=== PATIENT | female | born 1940 | race Caucasian/White ===

== ENCOUNTER 2017-01-04 09:01 | Day surgery (SDC) | payer OTHER ==
[2017-01-03 15:22] VITALS: BMI 23.9
[2017-01-04] MEDS ORDERED: PROPOFOL 20 ML ONE ×2 (10:29)
[2017-01-04 11:49] VITALS: TEMP 98.1
[2017-01-04 13:50] VITALS: BP 166/60; PULSE 54
--- NOTE | 2017-01-05 12:26 | PATH ---
Surgical Pathology Report Patient Name: FAY LERMA [facility]. Rec. #: [id number] /Age/Gender: 1940 (Age: 76) / F Account: [id number] Location: [facility]-ENDOSCOPY Taken: 01/04/2017 Received: 01/04/2017 Reported: 01/05/2017 Physicians: Mana Estrella M.D. Specimen(s) Received A: POLYP TRANSVERSE COLON B: BX CECAL POLYP C: BX RIGHT COLON POLYP Clinical History History of colon polyps, family history of colon cancer Diverticulosis, colon polyps (distal transverse colon, cecal polyp, right colon polyp) Final Diagnosis A. DISTAL TRANSVERSE COLON, POLYP, BIOPSY: TUBULAR ADENOMA. B. CECUM, POLYP, BIOPSY: POLYPOID COLONIC MUCOSA WITH LYMPHOID AGGREGATE. C. COLON, RIGHT, POLYP, BIOPSY: POLYPOID COLONIC MUCOSA WITH LYMPHOID AGGREGATE. Electronically Signed Karen Ruiz M.D. Gross Description A. Received in formalin, labeled "biopsy polyp transverse colon" is a ny, irregular portion of soft tissue measuring 0.4 cm. in greatest dimension. The specimen is submitted in toto in one cassette. B. Received in formalin, labeled "biopsy cecal polyp" are 2 ny, irregular portions of soft tissue measuring 0.2 and 0.3 cm. in greatest dimension. The specimens are submitted in toto in one cassette. C. Received in formalin, labeled "biopsy right colon polyp" are 2 ny, irregular portions of soft tissue measuring 0.1 and 0.4 cm. in greatest dimension. The specimens are submitted in toto in one cassette. 01/04/2017 saudi01/04/2017
== END 2017-01-04 12:40 | disposition home or self-care (01) ==
LOC: JASU-ENDO 09:01
PROVIDERS: ATTEND Internal Medicine Gastroenterology
PROC: 0DBL8ZX Excision of Transverse Colon, Via Natural or Artificial Opening Endoscopic, Diagnostic (ICD-10-PCS; 2017-01-04)
PROC: 0DBH8ZX Excision of Cecum, Via Natural or Artificial Opening Endoscopic, Diagnostic (ICD-10-PCS; principal; 2017-01-04 10:00)
DX: Z12.11 Encounter for screening for malignant neoplasm of colon (principal); Z80.0 Family history of malignant neoplasm of digestive organs; D12.0 Benign neoplasm of cecum; D12.3 Benign neoplasm of transverse colon; K57.30 Diverticulosis of large intestine without perforation or abscess without bleeding; K64.8 Other hemorrhoids
CPT/HCPCS: 88305-TC

== ENCOUNTER 2018-01-19 10:08 | Day surgery (SDC) | payer OTHER ==
[2018-01-18 15:46] VITALS: BMI 23.5
[2018-01-19 12:03] VITALS: TEMP 97.6
[2018-01-19 12:46] VITALS: BP 154/61; PULSE 48
--- NOTE | 2018-01-22 17:09 | PATH ---
Surgical Pathology Report Patient Name: FAY LERMA [facility]. Rec. #: [id number] /Age/Gender: 1940 (Age: 77) / F Account: [id number] Location: U-ENDOSCOPY Taken: 01/19/2018 Received: 01/19/2018 Reported: 01/22/2018 Physicians: Mana Estrella M.D. Specimen(s) Received A: BX DUODENUM SECOND PORTION B: BX ANTRUM Clinical History Flatulence, eructation, gas pain, abdominal pain Postoperative diagnosis: Atrophic gastritis Final Diagnosis A. DUODENUM, SECOND PORTION, BIOPSY: DUODENAL MUCOSA WITH MILD TO MODERATE CHRONIC DUODENITIS AND LOLA'S GLAND HYPERPLASIA. B. STOMACH, ANTRUM, BIOPSY: GASTRIC ANTRAL MUCOSA WITH MILD CHRONIC GASTRITIS. IMMUNOHISTOCHEMICAL STAIN FOR H. PYLORI IS NEGATIVE. Electronically Signed Karen Ruiz M.D. Gross Description A. Received in formalin, labeled "biopsy second portion of duodenum" are 3 ny, irregular portions of soft tissue averaging 0.3 cm. in greatest dimension. The specimens are submitted in toto in one cassette. B. Received in formalin, labeled "biopsy antrum" are 4 ny, irregular portions of soft tissue ranging from 0.2-0.4 cm. in greatest dimension. The specimens are submitted in toto in one cassette. 01/19/201801/19/2018
== END 2018-01-19 12:47 | disposition home or self-care (01) ==
LOC: JASU-ENDO 10:08
PROVIDERS: ATTEND Internal Medicine Gastroenterology
PROC: 0DB68ZX Excision of Stomach, Via Natural or Artificial Opening Endoscopic, Diagnostic (ICD-10-PCS; principal; 2018-01-19 11:15)
DX: K25.9 Gastric ulcer, unspecified as acute or chronic, without hemorrhage or perforation (principal)
CPT/HCPCS: 88305-TC; 88342-TC

== ENCOUNTER 2018-04-01 22:35 | Emergency (ER) | payer OTHER ==
[2018-04-01 22:47] VITALS: BMI 25.0
--- NOTE | 2018-04-01 23:29 | PDOC ---
History of Present Illness - General Chief Complaint: Pain, Acute Stated Complaint: DIZZINESS/NAUSEA Time Seen by Provider: 04/01/18 23:29 - History of Present Illness Initial Comments: 04/01/18 23:42 Ms. Abdul is a 78 yo female w/ pmh HTN, HLD, GERD, who presents for evaluation of several day history of nausea, with gas that progressed to abdominal pain. Patient reports symptoms started on Monday and have been complicated by nausea. Symptoms advanced today with bilateral lower abdominal pain. Patient reports last full bowel movement 3 days ago and small bm 2 days ago. Denies any other symptoms. The patient denies chest pain, shortness of breath, headache and dizziness. Denies fever, chills, vomit, and diarrhea. Denies dysuria, frequency, urgency and hematuria. Past History - Past Medical History Allergies/Adverse Reactions: Allergies Allergy/AdvReac Type Severity Reaction Status Date / Time codeine Allergy Severe Nausea Verified 10/01/12 15:53 Home Medications: Ambulatory Orders Cholecalciferol (Vitamin D3) [Vitamin D3] 400 unit PO DAILY 10/01/12 Simvastatin [Zocor -] 10 mg PO HS 10/01/12 Alprazolam [Xanax Xr] 1 mg PO PRN PRN 01/03/17 Aspirin [Aspirin EC] 81 mg PO DAILY 01/03/17 Metoprolol Tartrate [Lopressor -] 25 mg PO PRN 01/03/17 Omeprazole 20 mg PO DAILY #1 tab 01/19/18 Amlodipine Besylate 2.5 mg PO DAILY 04/01/18 Cholecalciferol (Vitamin D3) [Vitamin D3] 1,000 unit PO DAILY 04/01/18 Ubidecarenone [Coq-10] 30 mg PO DAILY 04/01/18 Anemia: No Asthma: No Cancer: No Cardiac Disorders: Yes (MVP,ARRYTHMIA) CVA: No COPD: No CHF: No Dementia: No Diabetes: No GI Disorders: Yes Disorders: Yes (NEPHROLITHIASIS WITH ESWL) HTN: No Hypercholesterolemia: Yes Liver Disease: No Seizures: No Thyroid Disease: No - Surgical History Abdominal Surgery: Yes Appendectomy: No Cardiac Surgery: No Cholecystectomy: Yes Lung Surgery: No Neurologic Surgery: No Orthopedic Surgery: Yes (RIGHT SHOULDER SX,RIGHT KNEE) - Suicide/Smoking/Psychosocial Hx Smoking History: Never smoked Have you smoked in the past 12 months: No If you are a former smoker, when did you quit?: 1974 Information on smoking cessation initiated: No Hx Alcohol Use: No Drug/Substance Use Hx: No Substance Use Type: None Hx Substance Use Treatment: No Review of Systems - Review of Systems Comments:: 04/02/18 00:00 GENERAL/CONSTITUTIONAL: No fever or chills. No weakness. HEAD, EYES, EARS, NOSE AND THROAT: No change in vision. No ear pain or discharge. No sore throat. CARDIOVASCULAR: No chest pain or shortness of breath RESPIRATORY: No cough, wheezing, or hemoptysis. GASTROINTESTINAL: +Constipation with nausea as described. +HAMMAD lower abdominal pain. No vomiting or diarrhea. GENITOURINARY: No dysuria, frequency, or change in urination. MUSCULOSKELETAL: No joint or muscle swelling or pain. No neck or back pain. SKIN: No rash NEUROLOGIC: No headache, vertigo, loss of consciousness, or change in strength/ sensation. ENDOCRINE: No increased thirst. No abnormal weight change HEMATOLOGIC/LYMPHATIC: No anemia, easy bleeding, or history of blood clots. ALLERGIC/IMMUNOLOGIC: No hives or skin allergy. *Physical Exam - Vital Signs Last Vital Signs Temp Pulse Resp BP Pulse Ox 98.2 F 70 20 102/66 96 04/01/18 22:40 04/01/18 22:40 04/01/18 22:40 04/01/18 22:40 04/01/18 22:40 - Physical Exam Comments: 04/02/18 00:01 GENERAL: Awake, alert, and fully oriented, in no acute distress HEAD: No signs of trauma, normocephalic, atraumatic EYES: PERRLA, EOMI, sclera anicteric, conjunctiva clear ENT: Auricles normal inspection, hearing grossly normal, nares patent, oropharynx clear without exudates. Moist mucosa NECK: Normal ROM, supple, no lymphadenopathy, JVD, or masses LUNGS: No distress, speaks full sentences, clear to auscultation bilaterally HEART: Regular rate and rhythm, normal S1 and S2, no murmurs, rubs or gallops, peripheral pulses normal and equal bilaterally. ABDOMEN: +HAMMAD Lower abdominal TTP, L>R. Soft, normoactive bowel sounds. No guarding, no rebound. No masses EXTREMITIES: Normal inspection, Normal range of motion, no edema. No clubbing or cyanosis. NEUROLOGICAL: Cranial nerves II through XII grossly intact. Normal speech, normal gait, no focal sensorimotor deficits SKIN: Warm, Dry, normal turgor, no rashes or lesions noted. Moderate Sedation - Procedure Monitoring Vital Signs: Procedure Monitoring Vital Signs Temperature 98.2 F 04/01/18 22:40 Pulse Rate 70 04/01/18 22:40 Respiratory Rate 20 04/01/18 22:40 Blood Pressure 102/66 04/01/18 22:40 O2 Sat by Pulse Oximetry (%) 96 04/01/18 22:40 ED Treatment Course - LABORATORY CBC & Chemistry Diagram: 04/01/18 23:56 04/01/18 23:56 Medical Decision Making - Medical Decision Making 04/02/18 02:44 Ms. Burgos is a 78 yo female w/ pmh as described who presents for evaluation of symptoms concerning for diverticulitis vs. SBO vs. viral illness vs. appenditicits. Patient evaluated with labs as below and found to have mildly elevated WBC count. Patient evaluated further with CT abdomen/pelvis and found to have moderate sigmoid diverticulitis w/out complication. Will proscribe patient outpatient Rx for augmentin (patient requested not to have levaquin as she has had tendonitis following use in the past) / flagyl and dc for outpatient follow-up. Discussed with patient who agrees. Discharging to home. Laboratory Results - last 24 hr 04/01/18 04/01/18 04/01/18 23:56 23:56 23:56 WBC 13.3 H RBC 3.80 Hgb 13.2 Hct 36.7 MCV 96.5 H MCH 34.7 H MCHC 36.0 RDW 13.2 Plt Count 169 MPV 8.5 Absolute Neuts (auto) 11.2 H Neutrophils % 83.9 H Lymphocytes % 9.2 Monocytes % 6.2 Eosinophils % 0.3 Basophils % 0.4 Nucleated RBC % 0 PT with INR 12.70 INR 1.08 PTT (Actin FS) 31.5 Sodium 137 Potassium 3.9 Chloride 105 Carbon Dioxide 23 Anion Gap 10 BUN 19 H Creatinine 0.8 Creat Clearance w eGFR > 60 Random Glucose 134 H Calcium 8.6 Total Bilirubin 0.7 AST 25 ALT 17 Alkaline Phosphatase 87 Total Protein 7.4 Albumin 4.2 Urine Color Urine Appearance Urine pH Ur Specific [place] Urine Protein Urine Glucose (UA) Urine Ketones Urine Blood Urine Nitrite Urine Bilirubin Urine Urobilinogen Ur Leukocyte Esterase Urine WBC (Auto) Urine RBC (Auto) Ur Epithelial Cells Hyaline Casts Urine Mucus Blood Type Antibody Screen 04/01/18 04/02/18 23:56 00:53 WBC RBC Hgb Hct MCV MCH MCHC RDW Plt Count MPV Absolute Neuts (auto) Neutrophils % Lymphocytes % Monocytes % Eosinophils % Basophils % Nucleated RBC % PT with INR INR PTT (Actin FS) Sodium Potassium Chloride Carbon Dioxide Anion Gap BUN Creatinine Creat Clearance w eGFR Random Glucose Calcium Total Bilirubin AST ALT Alkaline Phosphatase Total Protein Albumin Urine Color Yellow Urine Appearance Clear Urine pH 6.0 Ur Specific [place] 1.016 Urine Protein 2+ H Urine Glucose (UA) Negative Urine Ketones 1+ H Urine Blood Negative Urine Nitrite Negative Urine Bilirubin Negative Urine Urobilinogen Negative Ur Leukocyte Esterase Negative Urine WBC (Auto) 4 Urine RBC (Auto) 1 Ur Epithelial Cells Rare Hyaline Casts 1 Urine Mucus Rare Blood Type O POSITIVE Antibody Screen Negative *DC/Admit/Observation/Transfer Diagnosis at time of Disposition: Diverticulitis - Discharge Dispostion Disposition: HOME - Referrals Referrals: Hany Ortiz MD [Primary Care Provider] - - Patient Instructions Printed Discharge Instructions: DI for Diverticulitis Additional Instructions: You were evaluated today in the ER for your stomach pain and found to have diverticulitis. We started you on antibiotics for home use and recommend you follow-up with optical glass wet inspector tomorrow for further evaluation as discussed. Return to ER if any difficulty taking medications, fevers, chills, pain, or other concerning symptoms. - Post Discharge Activity
--- NOTE | 2018-04-01 23:41 | PDOC ---
Attending Attestation - HPI HPI: This patient is a 78 year old F, with PMHx of HTN, HLD, gastritis, who presents with nausea & flatulence since Monday. She states she woke up this morning and had b/l lower abdominal pain with increased nausea. She states 3 days ago she had a normal-sized BM but 2 days ago she had a smaller sized BM. Surgical Hx: Cholecystectomy 04/02/18 00:01 <Amisha Villalba - Last Filed: 04/02/18 00:01> - Physicial Exam PE: 04/02/18 01:35 GENERAL: Well-appearing, well-nourished. No apparent distress. HEENT: Normocephalic, atraumatic. PERRL, EOM intact. CARDIOVASCULAR: Normal S1, S2. Regular rate and rhythm. PULMONARY: Clear to auscultation bilaterally. ABDOMEN: RLQ tenderness. Soft, non-distended EXTREMITIES: Normal ROM in all four extremities. No gross deformities. SKIN: Warm, dry. No rash NEUROLOGICAL: No focal neurological deficits. <Alexy Gibson - Last Filed: 04/02/18 01:35> - Resident Resident Name: Mendez Sher - ED Attending Attestation I have performed the following: I have examined & evaluated the patient, The case was reviewed & discussed with the resident, I agree w/resident's findings & plan - Medical Decision Making 04/02/18 02:44 Patient Name: FAY LERMA THIS IS A PRELIMINARY REPORT FROM [facility] [employer] DATE OF SERVICE: 2018-04-02 02:18:54 IMAGES: [id number] EXAM: ABDOMEN \T\ PELVIS CT W/O CONTR HISTORY: Rule out colitis COMPARISON: None. FINDINGS: Lung bases are clear. The visualized cardiac chambers are normal size and configuration. Status post cholecystectomy without biliary duct dilation. Normal unenhanced liver, pancreas, spleen, adrenal glands and kidneys. The stomach and small bowel are normal. There is moderate sigmoid inflammation diverticulosis, consistent diverticulitis. No bowel obstruction, abscess or free air. There is no aortic aneurysm. There is no significant retroperitoneal lymphadenopathy. The pelvic small and large bowel are normal. There is no evidence of appendicitis the appendix is normal structures are notable for small calcified fibroid. Urinary bladder is unremarkable. There is no pelvic free fluid. No discrete pelvic lymphadenopathy is identified. IMPRESSION: Moderate sigmoid diverticulitis without secondary complication 04/02/18 03:14 Pt is refusing levaquin to go home with; we will treat her uncomplicated colitis with augmentin and she will follow with Dr. Estrella <Avril Perdomo - Last Filed: 04/02/18 03:15> Attestations - Attestations 04/02/18 01:36 Documentation prepared by Alexy Gibson, acting as medical laboratory specialist for Avril Perdomo MD <Aleyx Gibson - Last Filed: 04/02/18 01:35>
[2018-04-01] MEDS ORDERED: SODIUM CHLORIDE 0.9% 500 ML INFUS.BAG IV ONE (23:46)
[2018-04-01] MEDS ORDERED: ONDANSETRON 4 MG/2 ML VIAL IVPUSH ONE (23:47)
[2018-04-01] MEDS ORDERED: ACETAMINOPHEN 1000 MG/100 ML VIAL (NON FORMULARY) IVPB ONE (23:47)
[2018-04-01] MEDS ORDERED: ACETAMINOPHEN INJECTION 100 ML IVPB ONE (23:58)
[2018-04-01] MEDS ORDERED: ONDANSETRON 4 MG/2 ML VIAL ONE (23:58)
[2018-04-02 00:05] LABS: BASO % 0.4 % (0-2.0); EOS % 0.3 % (0-4.5); HEMATOCRIT 36.7 % (32.4-45.2); HEMOGLOBIN 13.2 GM/dL (10.7-15.3); LYMPH % 9.2 % (8-40); MCH 34.7 pg (25.7-33.7); MEAN CELL VOLUME 96.5 fl (80-96); MEAN PLT VOLUME 8.5 fl (7.5-11.1); MONO % 6.2 % (3.8-10.2); NEUT % 83.9 % (42.8-82.8); PLATELET COUNT 169 K/MM3 (134-434); RDW 13.2 % (11.6-15.6); WHITE BLOOD COUNT 13.3 K/mm3 (4.0-10.0)
[2018-04-02 00:19] LABS: INR 1.08 (0.83-1.09); PROTHROMBIN TIME (PATIENT) 12.7 SEC (9.7-13.0)
[2018-04-02 00:22] LABS: ACTIVATED PTT 31.5 SECONDS (25.2-36.5)
[2018-04-02 00:46] LABS: ALBUMIN 4.2 g/dl (3.4-5.0); ALK PHOS 87 U/L (45-117); ANION GAP 10 MMOL/L (8-16); BILIRUBIN,TOTAL 0.7 mg/dL (0.2-1); BLOOD UREA NITROGEN 19 mg/dL (7-18); CALCIUM 8.6 mg/dL (8.5-10.1); CHLORIDE 105 mmol/L (98-107); CO2 23 mmol/L (21-32); CREATININE 0.8 mg/dL (0.55-1.3); GLUCOSE,RANDOM 134 mg/dL (74-106); POTASSIUM 3.9 mmol/L (3.5-5.1); SGOT/AST 25 U/L (15-37); SGPT/ALT 17 U/L (13-61); SODIUM 137 mmol/L (136-145); TOT PROT 7.4 g/dl (6.4-8.2)
[2018-04-02 01:06] LABS: URINE APPEARANCE CLEAR; URINE BILIRUBIN NEGATIVE (<2.0 mg/dL); URINE COLOR YELLOW; URINE GLUCOSE (UA) NEGATIVE (NEGATIVE); URINE KETONE 1+ (NEGATIVE); URINE LEUK ESTERASE NEGATIVE (NEGATIVE); URINE NITRITE NEGATIVE (NEGATIVE); URINE PROTEIN 2+ (NEGATIVE); URINE UROBILINOGEN NEGATIVE mg/dL (0.2-1.0)
[2018-04-02 01:14] LABS: EPI CELLS RARE /HPF (FEW); URINE HYALINE CAST 1 /lpf; URINE MUCUS RARE
[2018-04-02 03:21] VITALS: BP 110/67; PULSE 88; TEMP 98.5
--- NOTE | 2018-04-02 10:47 | EKG ---
Test Reason : Blood Pressure : / mmHG Vent. Rate : 050 BPM Atrial Rate : 050 BPM P-R Int : 180 ms QRS Dur : 070 ms QT Int : 450 ms P-R-T Axes : 071 060 056 degrees QTc Int : 410 ms SINUS BRADYCARDIA OTHERWISE NORMAL ECG WHEN COMPARED WITH ECG OF 10-MAY-1997 11:09, NO SIGNIFICANT CHANGE WAS FOUND Confirmed by AKIKO BLACK MD ([id number]) on 04/02/2018 10:46:42 AM Referred By: Confirmed By:AKIKO BLACK MD
== END 2018-04-02 03:21 | disposition home or self-care (01) ==
LOC: JER 22:35
PROC: 3E03329 Introduction of Other Anti-infective into Peripheral Vein, Percutaneous Approach (ICD-10-PCS; principal; 2018-04-01)
PROC: 3E03329 Introduction of Other Anti-infective into Peripheral Vein, Percutaneous Approach (ICD-10-PCS; 2018-04-01)
PROC: 3E033GC Introduction of Other Therapeutic Substance into Peripheral Vein, Percutaneous Approach (ICD-10-PCS; 2018-04-01)
PROC: 3E033NZ Introduction of Analgesics, Hypnotics, Sedatives into Peripheral Vein, Percutaneous Approach (ICD-10-PCS; 2018-04-01)
DX: K57.92 Diverticulitis of intestine, part unspecified, without perforation or abscess without bleeding (principal); I10 Essential (primary) hypertension; E78.00 Pure hypercholesterolemia, unspecified; K21.9 Gastro-esophageal reflux disease without esophagitis; Z87.442 Personal history of urinary calculi
CPT/HCPCS: 36415; 71045-TC-FY; 74176-TC; 80053; 81003; 81015; 85025; 85610; 85730; 86850; 86900; 86901; 87086; 93005; 93010; 96365; 96368; 96375; 99282-25; J0131

== ENCOUNTER 2019-04-27 13:00 | Emergency (ER) | payer OTHER ==
[2019-04-27 13:06] VITALS: BP 112/55; PULSE 59; TEMP 97.7; BMI 23.0
[2019-04-27] MEDS ORDERED: RABIES VACCINE (PCEC)/PF 2.5 UNIT/VIAL IM ONE ×2 (13:34→13:48)
[2019-04-27] MEDS ORDERED: DIPHTH,PERTUSS(ACELL),TET 0.5 ML DISP.SYRIN IM ONE ×2 (13:34→13:48)
[2019-04-27] MEDS ORDERED: ACETAMINOPHEN 500 MG TABLET (FP) PO ONE (13:34)
[2019-04-27] MEDS ORDERED: RABIES IMMUNE GLOBULIN 300 UNITS/1 ML VIAL IM ONE (13:34)
--- NOTE | 2019-04-27 13:40 | PDOC ---
History of Present Illness - General Chief Complaint: Bite Stated Complaint: DOG BITE Time Seen by Provider: 04/27/19 13:11 History Source: Patient, Old Records Exam Limitations: No Limitations - History of Present Illness Initial Comments: 04/27/19 13:40 HISTORY OF PRESENT ILLNESS: 79-year-old woman past medical history of arrhythmia , hypertension currently not on medications who presents emergency department for evaluation of dog bite to her left leg. Patient reports she came out of a grocery store where there is a small brown dog who bit her without being provoked. Patient noted that the teeth went through her pants but when she lifted up the pant leg did not notice any bleeding at that time. The dog's flatbed company driver reported the dog is up-to-date with vaccinations but did not give contact information. Patient went to another store and noted bleeding from her leg at that time and when she came out of the store the dog and the flatbed company driver had gone. Unknown last tetanus. No recent travel or sick contacts. PAST MEDICAL HISTORY: See HPI SURGICAL HISTORY: Denies ALLERGIES: No known drug allergies REVIEW OF SYSTEMS General/Constitutional: Denies fever or chills. Denies weakness, weight change. HEENT: Denies change in vision. Denies ear pain or discharge. Denies sore throat. Cardiovascular: Denies chest pain or shortness of breath. Respiratory: Denies cough, wheezing, or hemoptysis. Gastrointestinal: Denies nausea, vomiting, diarrhea or constipation. Denies rectal bleeding. Genitourinary: Denies dysuria, frequency, or change in urination. Musculoskeletal: Denies joint or muscle swelling or pain. Denies neck or back pain. Skin and breasts: See HPI Neurologic: Denies headache, vertigo, loss of consciousness, or loss of sensation. Psychiatric: Denies depression or anxiety. Endocrine: Denies increased thirst. Denies abnormal weight change. Hematologic/Lymphatic: Denies anemia, easy bleeding, or history of blood clots. Allergic/Immunologic: Denies hives or skin allergy. Denies latex allergy. PHYSICAL EXAM General Appearance: Well-appearing, appropriately dressed. No apparent distress , no intoxication. Respiratory/Chest: Lungs CTAB. No shortness of breath, chest tenderness, respiratory distress, accessory muscle use. No crackles, rales, rhonchi, stridor , wheezing, dullness Cardiovascular: RRR. S1, S2. No JVD, murmur, bradycardia, tachycardia. Vascular Pulses: Dorsalis-Pedis (R): 2+, Dorsalis-Pedis (L): 2+ Musculoskeletal/Extremities: Normal inspection. FROM of all extremities, normal capillary refill. Pelvis Stable. No CVA tenderness. No tenderness to extremities, pedal edema, swelling, erythema or deformity. Punctate dog bite present to the lateral aspect of the left lower leg. Minor swelling present around wound. Bleeding is controlled at this time. No tenderness to palpation of the bones of the lower leg or soft tissue. No subcutaneous emphysema noted. Neurovascularly intact. Integumentary: See musculoskeletal assessment. Past History - Past Medical History Allergies/Adverse Reactions: Allergies Allergy/AdvReac Type Severity Reaction Status Date / Time codeine Allergy Severe Nausea Verified 04/27/19 13:03 Home Medications: Ambulatory Orders Cholecalciferol (Vitamin D3) [Vitamin D3] 400 unit PO DAILY 10/01/12 Simvastatin [Zocor -] 10 mg PO HS 10/01/12 Alprazolam [Xanax Xr] 1 mg PO PRN PRN 01/03/17 Aspirin [Aspirin EC] 81 mg PO DAILY 01/03/17 Metoprolol Tartrate [Lopressor -] 25 mg PO PRN 01/03/17 Omeprazole 20 mg PO DAILY #1 tab. 01/19/18 Amlodipine Besylate 2.5 mg PO DAILY 04/01/18 Cholecalciferol (Vitamin D3) [Vitamin D3] 1,000 unit PO DAILY 04/01/18 Ubidecarenone [Coq-10] 30 mg PO DAILY 04/01/18 Amoxicillin/Potassium Clav [Augmentin 875-125 Tablet] 1 each PO BID #14 tablet 04/02/18 Amox-Tr/K Cl [Augmentin - 875Mg Tablet] 1 tab PO BID #14 tablet 04/27/19 Anemia: No Asthma: No Cancer: No Cardiac Disorders: Yes (MVP,ARRYTHMIA) CVA: No COPD: No CHF: No Dementia: No Diabetes: No GI Disorders: Yes Disorders: Yes (NEPHROLITHIASIS WITH ESWL) HTN: No Hypercholesterolemia: Yes Liver Disease: No Seizures: No Thyroid Disease: No - Surgical History Abdominal Surgery: Yes Appendectomy: No Cardiac Surgery: No Cholecystectomy: Yes Lung Surgery: No Neurologic Surgery: No Orthopedic Surgery: Yes (RIGHT SHOULDER SX,RIGHT KNEE) - Psycho Social/Smoking Cessation Hx Smoking History: Former smoker Have you smoked in the past 12 months: No If you are a former smoker, when did you quit?: 1974 Information on smoking cessation initiated: No Hx Alcohol Use: No Drug/Substance Use Hx: No Substance Use Type: None Hx Substance Use Treatment: No *Physical Exam - Vital Signs Last Vital Signs Temp Pulse Resp BP Pulse Ox 97.7 F 59 L 18 112/55 L 96 04/27/19 13:04 04/27/19 13:04 04/27/19 13:04 04/27/19 13:04 04/27/19 13:04 Medical Decision Making - Medical Decision Making 04/27/19 13:44 A/P: 79-year-old woman with dog bite to left lower leg As this was an unprovoked attack by a dog that cannot be verified for vaccine status or monitored I will treat the patient for rabies exposure. Rabies immunoglobulin 20 units/kg Rabies vaccine dose #1 now Boostrix IM Tylenol 1 g orally now We will discharge home with prescription for Augmentin. Discharge - Discharge Information Problems reviewed: Yes Clinical Impression/Diagnosis: Dog bite of calf Qualifiers: Encounter type: initial encounter Laterality: left Qualified Code(s): S81.852A - Open bite, left lower leg, initial encounter Condition: Fair - Admission No - Additional Discharge Information Prescriptions: Amox-Tr/K Cl [Augmentin - 875Mg Tablet] 1 tab PO BID #14 tablet - Follow up/Referral Referrals: Hany Ortiz MD [Primary Care Provider] - - Patient Discharge Instructions Additional Instructions: You were bitten by a dog today. Because you're unable to contact the dog's flatbed company driver rabies treatment is indicated at this time. Take Augmentin 875 mg twice a day for the next 10 days. Apply bacitracin to wounds twice a day after washing with antibacterial soap. Your tetanus has been updated today. Return on Sunday 04/30, Monday, Wednesday 05/10 for repeat rabies vaccination. Return to the emergency department for any discharge or drainage from the wounds , red streaking up your leg from the wounds or for any other concerns. Thank you very much for choosing us to provide your emergent health care needs. - Post Discharge Activity Work/Back to School Note: Rabies Vaccination F/U [place].
[2019-04-27] MEDS ORDERED: ACETAMINOPHEN 500 MG TABLET (FP) ONE (13:47)
[2019-04-27] MEDS ORDERED: BACITRACIN 15 GM TUBE TOPICAL OINTMENT TP ONE (14:20)
[2019-04-27] MEDS ORDERED: BACITRACIN 15 GM TUBE TOPICAL OINTMENT ONE (14:24)
== END 2019-04-27 14:33 | disposition home or self-care (01) ==
LOC: JERFT 13:00
PROC: 3E0234Z Introduction of Serum, Toxoid and Vaccine into Muscle, Percutaneous Approach (ICD-10-PCS; principal; 2019-04-27)
PROC: 3E0234Z Introduction of Serum, Toxoid and Vaccine into Muscle, Percutaneous Approach (ICD-10-PCS; 2019-04-27)
PROC: 3E0234Z Introduction of Serum, Toxoid and Vaccine into Muscle, Percutaneous Approach (ICD-10-PCS; 2019-04-27)
DX: S81.852A Open bite, left lower leg, initial encounter (principal); W54.0XXA Bitten by dog, initial encounter; Y93.89 Activity, other specified; Y92.512 Supermarket, store or market as the place of occurrence of the external cause; Y99.8 Other external cause status; Z88.5 Allergy status to narcotic agent; I10 Essential (primary) hypertension; I49.9 Cardiac arrhythmia, unspecified; I34.1 Nonrheumatic mitral (valve) prolapse; E78.00 Pure hypercholesterolemia, unspecified; Z87.442 Personal history of urinary calculi
CPT/HCPCS: 90375; 90471; 90675; 90715; 96372; 99283-25

== ENCOUNTER 2019-04-30 09:31 | Emergency (ER) | payer OTHER ==
[2019-04-30 09:37] VITALS: BP 135/65; PULSE 60; TEMP 97.7; BMI 22.7
--- NOTE | 2019-04-30 09:58 | PDOC ---
History of Present Illness - General Chief Complaint: Revisit,Rabies Injection Stated Complaint: Rabbies vaccine Time Seen by Provider: 04/30/19 09:48 History Source: Patient Exam Limitations: No Limitations - History of Present Illness Initial Comments: 04/30/19 09:48 Here for rabies vaccine, was bitten by stray dog 3 days ago to her left calf. Came here for evaluation and was given initial immunoglobulin and first rabies vaccine. Patient states has been using soap and water and bacitracin ointment, has some mild tenderness same at site but no evidence of infection. No interaction/side effects from injections and vaccination. 04/30/19 10:30 Is this a multiple visit Asthma Patient?: No Severity: mild Past History - Travel Traveled outside of the country in the last 30 days: No Close contact w/someone who was outside of country & ill: No - Past Medical History Allergies/Adverse Reactions: Allergies Allergy/AdvReac Type Severity Reaction Status Date / Time codeine Allergy Severe Nausea Verified 04/30/19 09:37 Home Medications: Ambulatory Orders Simvastatin [Zocor -] 10 mg PO HS 10/01/12 Alprazolam [Xanax Xr] 1 mg PO PRN PRN 01/03/17 Aspirin [Aspirin EC] 81 mg PO DAILY 01/03/17 Metoprolol Tartrate [Lopressor -] 25 mg PO PRN 01/03/17 Omeprazole 20 mg PO DAILY #1 tab. 01/19/18 Cholecalciferol (Vitamin D3) [Vitamin D3] 1,000 unit PO DAILY 04/01/18 Ubidecarenone [Coq-10] 30 mg PO DAILY 04/01/18 Amoxicillin/Potassium Clav [Augmentin 875-125 Tablet] 1 each PO BID #14 tablet 04/02/18 Amox-Tr/K Cl [Augmentin - 875Mg Tablet] 1 tab PO BID #14 tablet 04/27/19 Anemia: No Asthma: No Cancer: No Cardiac Disorders: Yes (MVP,ARRYTHMIA) CVA: No COPD: No CHF: No Dementia: No Diabetes: No GI Disorders: Yes Disorders: Yes (NEPHROLITHIASIS WITH ESWL) HTN: No Hypercholesterolemia: Yes Liver Disease: No Seizures: No Thyroid Disease: No - Surgical History Abdominal Surgery: Yes Appendectomy: No Cardiac Surgery: No Cholecystectomy: Yes Lung Surgery: No Neurologic Surgery: No Orthopedic Surgery: Yes (RIGHT SHOULDER SX,RIGHT KNEE) - Psycho Social/Smoking Cessation Hx Smoking History: Never smoked Have you smoked in the past 12 months: No If you are a former smoker, when did you quit?: 1974 Information on smoking cessation initiated: No Hx Alcohol Use: No Drug/Substance Use Hx: No Substance Use Type: None Hx Substance Use Treatment: No Review of Systems - Review of Systems Able to Perform ROS?: Yes Is the patient limited Luxembourgish proficient: Yes Constitutional: Yes: See HPI. No: Symptoms Reported, Chills, Fever, Loss of Appetite, Malaise Integumentary: Yes: See HPI, Bruising. No: Symptoms Reported All Other Systems: Reviewed and Negative *Physical Exam - Vital Signs Last Vital Signs Temp Pulse Resp BP Pulse Ox 97.7 F 60 17 135/65 99 04/30/19 09:35 04/30/19 09:35 04/30/19 09:35 04/30/19 09:35 04/30/19 09:35 - Physical Exam General Appearance: Yes: Nourished, Appropriately Dressed. No: Apparent Distress HEENT: positive: PATRICK, Normal ENT Inspection, TMs Normal, Pharynx Normal Neck: positive: Supple. negative: Tender Respiratory/Chest: positive: Lungs Clear Musculoskeletal: positive: Normal Inspection Extremity: positive: Normal Capillary Refill, Normal Inspection, Other (Scabbed over lesions to left lower lateral calf. Mildly tender but no ecchymosis, erythema, swelling or significant tenderness. No evidence of cellulitis.) Integumentary: positive: Normal Color, Bruising Neurologic: positive: tumbling machine operator II-XII NML intact, Fully Oriented, Alert, Normal Mood/ Affect Discharge - Discharge Information Problems reviewed: No Clinical Impression/Diagnosis: Encounter for repeat administration of rabies vaccination Condition: Stable Disposition: HOME - Admission No - Follow up/Referral - Patient Discharge Instructions Patient Printed Discharge Instructions: DI for Rabies Vaccine Additional Instructions: Return 05/02/19 for 3rd Vaccine. - Post Discharge Activity
[2019-04-30] MEDS ORDERED: RABIES VACCINE (PCEC)/PF 2.5 UNIT/VIAL IM ONE ×2 (10:02→10:08)
== END 2019-04-30 10:40 | disposition home or self-care (01) ==
LOC: JERFT 09:31
PROC: 3E0234Z Introduction of Serum, Toxoid and Vaccine into Muscle, Percutaneous Approach (ICD-10-PCS; principal; 2019-04-30)
DX: Z20.3 Contact with and (suspected) exposure to rabies (principal); W54.0XXD Bitten by dog, subsequent encounter
CPT/HCPCS: 90471; 90675; 99281-25

== ENCOUNTER 2019-05-04 09:33 | Emergency (ER) | payer OTHER ==
[2019-05-04 10:00] VITALS: BP 154/69; PULSE 55; TEMP 97.3; BMI 22.5
[2019-05-04] MEDS ORDERED: RABIES VACCINE (PCEC)/PF 2.5 UNIT/VIAL IM ONE ×2 (10:08→10:19)
--- NOTE | 2019-05-04 10:25 | PDOC ---
History of Present Illness - General Chief Complaint: Revisit,Rabies Injection Stated Complaint: REVISIT Time Seen by Provider: 05/04/19 10:08 History Source: Patient Exam Limitations: No Limitations - History of Present Illness Initial Comments: 05/04/19 15:37 79 year old patient here for rabies vaccine. Reports no reaction from previous vaccines. Is this a multiple visit Asthma Patient?: No Asa Contraindications(Core Measure): No: Allergy Beta [place] Contraindications(Core Measure): Yes: Not Prescribed Past History - Travel Traveled outside of the country in the last 30 days: No - Past Medical History Allergies/Adverse Reactions: Allergies Allergy/AdvReac Type Severity Reaction Status Date / Time codeine Allergy Severe Nausea Verified 05/04/19 09:56 Home Medications: Ambulatory Orders Simvastatin [Zocor -] 10 mg PO HS 10/01/12 Alprazolam [Xanax Xr] 1 mg PO PRN PRN 01/03/17 Aspirin [Aspirin EC] 81 mg PO DAILY 01/03/17 Metoprolol Tartrate [Lopressor -] 25 mg PO PRN 01/03/17 Omeprazole 20 mg PO DAILY #1 tab. 01/19/18 Cholecalciferol (Vitamin D3) [Vitamin D3] 1,000 unit PO DAILY 04/01/18 Ubidecarenone [Coq-10] 30 mg PO DAILY 04/01/18 Amoxicillin/Potassium Clav [Augmentin 875-125 Tablet] 1 each PO BID #14 tablet 04/02/18 Amox-Tr/K Cl [Augmentin - 875Mg Tablet] 1 tab PO BID #14 tablet 04/27/19 Anemia: No Asthma: No Cancer: No Cardiac Disorders: Yes (MVP,ARRYTHMIA) CVA: No COPD: No CHF: No Dementia: No Diabetes: No GI Disorders: Yes Disorders: Yes (NEPHROLITHIASIS WITH ESWL) HTN: No Hypercholesterolemia: Yes Liver Disease: No Seizures: No Thyroid Disease: No - Surgical History Abdominal Surgery: Yes Appendectomy: No Cardiac Surgery: No Cholecystectomy: Yes Lung Surgery: No Neurologic Surgery: No Orthopedic Surgery: Yes (RIGHT SHOULDER SX,RIGHT KNEE) - Psycho Social/Smoking Cessation Hx Smoking History: Never smoked Have you smoked in the past 12 months: No If you are a former smoker, when did you quit?: 1974 Hx Alcohol Use: No Drug/Substance Use Hx: No Substance Use Type: None Hx Substance Use Treatment: No Review of Systems - Review of Systems Able to Perform ROS?: Yes Is the patient limited Khmer proficient: No Constitutional: No: Chills, Diaphoresis HEENTM: No: Blurred Vision, Ear Pain, Throat Pain, Throat Swelling, Difficulty Swallowing Respiratory: No: Orthopnea, SOB at Rest, Wheezing Cardiac (ROS): No: Chest Pain, Lightheadedness, Palpitations, Syncope Musculoskeletal: No: Joint Pain, Muscle Pain, Muscle Weakness *Physical Exam - Vital Signs Last Vital Signs Temp Pulse Resp BP Pulse Ox 97.3 F L 55 L 20 154/69 98 05/04/19 09:56 05/04/19 09:56 05/04/19 09:56 05/04/19 09:56 05/04/19 09:56 - Physical Exam General Appearance: Yes: Nourished, Appropriately Dressed HEENT: positive: TMs Normal, Pharynx Normal Neck: positive: Supple. negative: Lymphadenopathy (R), Lymphadenopathy (L) Respiratory/Chest: positive: Lungs Clear Cardiovascular: positive: Regular Rhythm, Regular Rate ED Treatment Course - Medications Given in the ED: ED Medications Discontinued Medications Generic Name Dose Route Start Last Admin Trade Name Freq PRN Reason Stop Dose Admin Rabies Vaccine 2.5 unit 05/04/19 10:08 05/04/19 10:19 [place] Rabies Vaccine IM 05/04/19 10:09 2.5 unit .ONCE ONE Administration Medical Decision Making - Medical Decision Making 05/04/19 15:41 79 year old female presents for rabies vaccine Discharge - Discharge Information Problems reviewed: Yes Clinical Impression/Diagnosis: Encounter for repeat administration of rabies vaccination Condition: Good Disposition: HOME - Admission No - Follow up/Referral Referrals: Hany Ortiz MD [Primary Care Provider] - - Patient Discharge Instructions Patient Printed Discharge Instructions: DI for Rabies Vaccine Additional Instructions: Return to emergency room for any reaction to vaccine. Return to emergency department on 05/11/2019 for final vaccine. - Post Discharge Activity Work/Back to School Note: Back to Work
== END 2019-05-04 10:35 | disposition home or self-care (01) ==
LOC: JERFT 09:33
PROC: 3E0234Z Introduction of Serum, Toxoid and Vaccine into Muscle, Percutaneous Approach (ICD-10-PCS; principal; 2019-05-04)
DX: Z20.3 Contact with and (suspected) exposure to rabies (principal); W54.0XXD Bitten by dog, subsequent encounter
CPT/HCPCS: 90471; 90675; 99282-25

== ENCOUNTER 2019-05-11 08:13 | Emergency (ER) | payer OTHER ==
[2019-05-11 08:21] VITALS: BP 153/53; PULSE 51; TEMP 97.7; BMI 22.5
[2019-05-11] MEDS ORDERED: RABIES VACCINE (PCEC)/PF 2.5 UNIT/VIAL IM ONE ×2 (08:26→08:35)
--- NOTE | 2019-05-11 08:29 | PDOC ---
History of Present Illness - General Chief Complaint: Revisit,Rabies Injection Stated Complaint: RABIES SHOT Time Seen by Provider: 05/11/19 08:23 History Source: Patient Exam Limitations: Clinical Condition - History of Present Illness Initial Comments: 05/11/19 08:34 Patient with no significant history present for last vaccine of the rabies vaccination status will be impaired by a stray dog to left leg over 2 weeks ago. Patient already received 3 doses of rabies vaccine and here for the last vaccine. Denies any reaction to previous vaccine. Patient reported bite site t o left leg has healed with no redness or discharge to site. Denies any evidence of infection to wound. Denies any other symptoms Is this a multiple visit Asthma Patient?: No Timing/Duration: other (2 weeks) Past History - Past Medical History Allergies/Adverse Reactions: Allergies Allergy/AdvReac Type Severity Reaction Status Date / Time codeine Allergy Severe Nausea Verified 05/11/19 08:17 Home Medications: Ambulatory Orders Simvastatin [Zocor -] 10 mg PO HS 10/01/12 Alprazolam [Xanax Xr] 1 mg PO PRN PRN 01/03/17 Aspirin [Aspirin EC] 81 mg PO DAILY 01/03/17 Metoprolol Tartrate [Lopressor -] 25 mg PO PRN 01/03/17 Omeprazole 20 mg PO DAILY #1 tab. 01/19/18 Cholecalciferol (Vitamin D3) [Vitamin D3] 1,000 unit PO DAILY 04/01/18 Ubidecarenone [Coq-10] 30 mg PO DAILY 04/01/18 Amoxicillin/Potassium Clav [Augmentin 875-125 Tablet] 1 each PO BID #14 tablet 04/02/18 Amox-Tr/K Cl [Augmentin - 875Mg Tablet] 1 tab PO BID #14 tablet 04/27/19 Anemia: No Asthma: No Cancer: No Cardiac Disorders: Yes (MVP,ARRYTHMIA) CVA: No COPD: No CHF: No Dementia: No Diabetes: No GI Disorders: Yes Disorders: Yes (NEPHROLITHIASIS WITH ESWL) HTN: No Hypercholesterolemia: Yes Liver Disease: No Seizures: No Thyroid Disease: No - Surgical History Abdominal Surgery: Yes Appendectomy: No Cardiac Surgery: No Cholecystectomy: Yes Lung Surgery: No Neurologic Surgery: No Orthopedic Surgery: Yes (RIGHT SHOULDER SX,RIGHT KNEE) - Psycho Social/Smoking Cessation Hx Smoking History: Never smoked Have you smoked in the past 12 months: No If you are a former smoker, when did you quit?: 1974 Hx Alcohol Use: No Drug/Substance Use Hx: No Substance Use Type: None Hx Substance Use Treatment: No Review of Systems - Review of Systems Able to Perform ROS?: Yes Is the patient limited Mohawk proficient: No Constitutional: No: Chills, Fever, Malaise HEENTM: No: Symptoms Reported, See HPI, Eye Pain, Blurred Vision, Tearing, Recent change in vision, Double Vision, Cataracts, Ear Pain, Ocular Prothesis, Ear Discharge, Nose Pain, Nose Congestion, Tinnitus, Nose Bleeding, Hearing Loss, Throat Pain, Throat Swelling, Mouth Pain, Dental Problems, Difficulty Swallowing, Mouth Swelling, Other Respiratory: No: Symptoms reported, See HPI, Cough, Orthopnea, Shortness of Breath, SOB with Exertion, SOB at Rest, Stridor, Wheezing, Productive cough, Hemoptysis, Other Cardiac (ROS): No: Symptoms Reported ABD/GI: No: Symptoms Reported, Nausea, Vomiting Musculoskeletal: No: Symptoms Reported, See HPI, Muscle Pain (left leg over bite site) Integumentary: Yes: Symptoms Reported, See HPI, Bruising (over bite site). No: Change in Color, Erythema, Lumps Neurological: No: Symptoms reported, Numbness, Paresthesia, Tingling, Weakness All Other Systems: Reviewed and Negative *Physical Exam - Vital Signs Last Vital Signs Temp Pulse Resp BP Pulse Ox 97.7 F 51 L 18 153/53 L 97 05/11/19 08:17 05/11/19 08:17 05/11/19 08:17 05/11/19 08:17 05/11/19 08:17 - Physical Exam General Appearance: Yes: Nourished, Appropriately Dressed. No: Apparent Distress HEENT: positive: Normal ENT Inspection Neck: positive: Supple Respiratory/Chest: positive: Decreased Breath Sounds. negative: Respiratory Distress, Accessory Muscle Use Musculoskeletal: positive: Normal Inspection Extremity: positive: Normal Capillary Refill, Normal Inspection, Normal Range of Motion. negative: Tender (to left leg), Cyanosis, Pedal Edema, Erythema Integumentary: positive: Normal Color, Warm. negative: Erythema (to left lateral lower leg over bite sit) Neurologic: positive: Fully Oriented, Alert, Normal Mood/Affect, Normal Response, Motor Strength /5 Medical Decision Making - Medical Decision Making 05/11/19 08:31 Patient with no significant history present for last vaccine of the rabies vaccination status will be impaired by a stray dog to left leg over 2 weeks ago. Patient already received 3 doses of rabies vaccine and here for the last vaccine. Denies any reaction to previous vaccine. Patient reported bite site to left leg has healed with no redness or discharge to site. Denies any evidence of infection to wound. Denies any other symptoms Exam significant for well-healed wound smaller abrasions to lateral aspect of left lower leg. No open wounds. No redness to wound site. No evidence of wound infection. Rabies vaccine given in the left deltoid without complication. Patient tolerated injection well and left room without complication. Patient stable for discharge Discharge - Discharge Information Problems reviewed: Yes Clinical Impression/Diagnosis: Encounter for repeat administration of rabies vaccination Dog bite of calf Qualifiers: Encounter type: subsequent encounter Laterality: left Qualified Code(s): S81.852D - Open bite, left lower leg, subsequent encounter Condition: Improved Disposition: HOME - Admission No - Follow up/Referral Referrals: Hany Ortiz MD [Primary Care Provider] - - Patient Discharge Instructions Patient Printed Discharge Instructions: DI for Rabies Vaccine Additional Instructions: You have received the last vaccine of your rabies vaccine today. Observe site of injection for any redness or evidence of infection and follow-up if changes to the skin of injection site. Come back to emergency room if shortness of breath, hives, choking sensation or evidence of allergic to vaccine - Post Discharge Activity
== END 2019-05-11 08:49 | disposition home or self-care (01) ==
LOC: JER 08:13
PROC: 3E0234Z Introduction of Serum, Toxoid and Vaccine into Muscle, Percutaneous Approach (ICD-10-PCS; principal; 2019-05-11)
DX: Z20.3 Contact with and (suspected) exposure to rabies (principal); W54.0XXD Bitten by dog, subsequent encounter
CPT/HCPCS: 90675; 99284-25

== ENCOUNTER 2021-04-11 10:37 | Emergency (ER) | payer OTHER ==
[2021-04-11 10:44] VITALS: BMI 20.7
[2021-04-11] MEDS ORDERED: LACTATED RINGERS SOLUTION 1,000 ML/1,000 ML INFUS.BAG IV SCH (12:15)
[2021-04-11 12:40] LABS: BASO % 0.7 % (0-2.0); HEMATOCRIT 34.7 % (32.4-45.2); HEMOGLOBIN 11.7 GM/dL (10.7-15.3); LYMPH % 21.3 % (8-40); MCH 32.2 pg (25.7-33.7); MCHC 33.7 g/dl (32.0-36.0); MEAN CELL VOLUME 95.5 fl (80-96); MEAN PLT VOLUME 8.2 fl (7.5-11.1); MONO % 8.2 % (3.8-10.2); NEUT % 66.8 % (42.8-82.8); PLATELET COUNT 162 10^3/uL (134-434); RBC 3.64 M/mm3 (3.60-5.2); RDW 13.4 % (11.6-15.6); WHITE BLOOD COUNT 4.5 K/mm3 (4.0-10.0)
[2021-04-11] MEDS ORDERED: ONDANSETRON 4 MG/2 ML VIAL IVPUSH ONE (12:46)
[2021-04-11 12:56] LABS: CALCIUM 9.1 mg/dL (8.5-10.1)
[2021-04-11 12:57] LABS: ALBUMIN 3.9 g/dl (3.4-5.0); BLOOD UREA NITROGEN 16.2 mg/dL (7-18); MAGNESIUM 2.6 mg/dL (1.8-2.4)
[2021-04-11 13:00] LABS: CREATININE 0.8 mg/dL (0.55-1.3); PHOSPHOROUS 3.6 mg/dL (2.5-4.9)
[2021-04-11 13:03] LABS: BILIRUBIN,TOTAL 0.6 mg/dL (0.2-1); TOT PROT 6.8 g/dl (6.4-8.2)
[2021-04-11 17:02] VITALS: BP 138/62; PULSE 56; TEMP 97.9
== END 2021-04-11 15:51 | disposition home or self-care (01) ==
LOC: JER 10:37
PROC: 3E033GC Introduction of Other Therapeutic Substance into Peripheral Vein, Percutaneous Approach (ICD-10-PCS; principal; 2021-04-11)
DX: K52.9 Noninfective gastroenteritis and colitis, unspecified (principal)
CPT/HCPCS: 36415; 74177-TC; 80053; 83690; 83735; 84100; 85025; 93005; 93010; 96361; 96374; 99285-25; C9803; U0003; U0005

== ENCOUNTER 2021-09-20 04:34 | Day surgery (SDC) | payer OTHER ==
[2021-09-15 15:17] VITALS: BMI 20.2
[2021-09-20 10:26] VITALS: PULSE 60; TEMP 97.9
[2021-09-20 11:05] VITALS: BP 163/68
== END 2021-09-20 11:15 | disposition home or self-care (01) ==
LOC: JASU-ENDO 04:34
PROVIDERS: ATTEND Internal Medicine Gastroenterology
PROC: 0DJD8ZZ Inspection of Lower Intestinal Tract, Via Natural or Artificial Opening Endoscopic (ICD-10-PCS; principal; 2021-09-20 10:00)
DX: Z12.11 Encounter for screening for malignant neoplasm of colon (principal); K57.30 Diverticulosis of large intestine without perforation or abscess without bleeding; K64.8 Other hemorrhoids; Z86.010 Personal history of colon polyps; Z80.0 Family history of malignant neoplasm of digestive organs

== ENCOUNTER 2021-11-16 08:50 | Emergency (ER) | payer OTHER ==
[2021-11-16 09:02] VITALS: BP 118/74; PULSE 66; RESP 17; TEMP 98.2; BMI 22.0
== END 2021-11-16 10:03 | disposition home or self-care (01) ==
LOC: JERFT 08:50
DX: S80.02XA Contusion of left knee, initial encounter (principal); Y99.9 Unspecified external cause status
CPT/HCPCS: 99283-25

== ENCOUNTER 2022-05-18 16:35 | Emergency (ER) | payer OTHER ==
[2022-05-18 16:54] VITALS: BP 154/96; PULSE 68; RESP 18; TEMP 98.1; BMI 22.7
[2022-05-18] MEDS ORDERED: ACETAMINOPHEN 1000 MG/100 ML BAG IVPB ONE (17:15)
[2022-05-18] MEDS ORDERED: MAG HYDROX/AL HYDROX/SIMETH 30 ML UNIT-DOSE CUP PO ONE (17:19)
[2022-05-18] MEDS ORDERED: FAMOTIDINE 20 MG/50 ML IVPB 20 MG/50 ML MG IVPB ONE ×2 (17:19→18:04)
[2022-05-18] MEDS ORDERED: ACETAMINOPHEN INJECTION 100 ML IVPB ONE (18:04)
[2022-05-18] MEDS ORDERED: MAG HYDROX/AL HYDROX/SIMETH 30 ML UNIT-DOSE CUP ONE (18:04)
[2022-05-18 18:07] LABS: HEMOGLOBIN 11.7 GM/dL (10.7-15.3); LYMPH % 33.5 % (8-40); MCH 31.2 pg (25.7-33.7); MCHC 33.6 g/dl (32.0-36.0); MEAN CELL VOLUME 93.1 fl (80-96); MONO % 9.6 % (3.8-10.2); NEUT % 54.9 % (42.8-82.8); PLATELET COUNT 170 10^3/uL (134-434); RBC 3.76 M/mm3 (3.60-5.2); RDW 13.3 % (11.6-15.6); WHITE BLOOD COUNT 4.9 K/mm3 (4.0-10.0)
[2022-05-18 18:17] LABS: EPI CELLS 4 /uL (0-25.1); HYALINE CASTS 0 /uL (0-3.1); URINE APPEARANCE CLEAR; URINE BACTERIA 44 /uL (0-1359); URINE BILIRUBIN NEGATIVE (NEGATIVE); URINE COLOR YELLOW; URINE GLUCOSE (UA) NEGATIVE (NEGATIVE); URINE KETONE NEGATIVE (NEGATIVE); URINE LEUK ESTERASE 1+ (NEGATIVE); URINE NITRITE NEGATIVE (NEGATIVE); URINE PROTEIN NEGATIVE (NEGATIVE); URINE RBC 6 /uL (0-23.9); URINE UROBILINOGEN 0.2 mg/dL (0.2-1.0); URINE WBC 16 /uL (0-25.8)
[2022-05-18 18:52] LABS: CALCIUM 9.2 mg/dL (8.5-10.1)
[2022-05-18 18:53] LABS: ALBUMIN 3.8 g/dl (3.4-5.0); BLOOD UREA NITROGEN 14.9 mg/dL (7-18)
[2022-05-18 18:56] LABS: CREATININE 0.8 mg/dL (0.55-1.3)
[2022-05-18 18:57] LABS: BILIRUBIN,TOTAL 0.4 mg/dL (0.2-1); TOT PROT 7.2 g/dl (6.4-8.2)
== END 2022-05-18 21:44 | disposition home or self-care (01) ==
LOC: JER 16:35
PROC: 3E033GC Introduction of Other Therapeutic Substance into Peripheral Vein, Percutaneous Approach (ICD-10-PCS; principal; 2022-05-18)
PROC: 3E033NZ Introduction of Analgesics, Hypnotics, Sedatives into Peripheral Vein, Percutaneous Approach (ICD-10-PCS; 2022-05-18)
DX: R10.11 Right upper quadrant pain (principal)
CPT/HCPCS: 36415; 71046-TC-FY; 74177-TC; 80053; 81003; 83690; 84484; 85025; 87086; 93005; 93010; 99285-25; Q9967

== ENCOUNTER 2022-07-08 11:16 | Emergency (ER) | payer OTHER ==
[2022-07-08 11:37] VITALS: RESP 18; BMI 20.8
[2022-07-08] MEDS ORDERED: FAMOTIDINE 20 MG/50 ML IVPB 20 MG/50 ML MG IVPB ONE ×2 (11:50→12:16)
[2022-07-08] MEDS ORDERED: SIMETHICONE 80 MG TAB.CHEW (FP) PO ONE (11:50)
[2022-07-08] MEDS ORDERED: MAG HYDROX/AL HYDROX/SIMETH -MYLANTA- ORAL SUSPENSION PO ONE (11:50)
[2022-07-08] MEDS ORDERED: ACETAMINOPHEN 500 MG TABLET (FP) PO ONE (11:50)
[2022-07-08] MEDS ORDERED: ACETAMINOPHEN 325 MG TABLET (FP) ONE (12:15)
[2022-07-08] MEDS ORDERED: SIMETHICONE 80 MG TAB.CHEW (FP) ONE (12:15)
[2022-07-08] MEDS ORDERED: MAG HYDROX/AL HYDROX/SIMETH 30 ML UNIT-DOSE CUP ONE (12:16)
[2022-07-08 12:30] LABS: BASO % 0.4 % (0-2.0); EOS % 0.9 % (0-4.5); HEMATOCRIT 33.8 % (32.4-45.2); LYMPH % 28.9 % (8-40); MCH 32.7 pg (25.7-33.7); MCHC 35.5 g/dl (32.0-36.0); MEAN CELL VOLUME 92.1 fl (80-96); MEAN PLT VOLUME 8.4 fl (7.5-11.1); MONO % 7.4 % (3.8-10.2); NEUT % 62.4 % (42.8-82.8); PLATELET COUNT 159 10^3/uL (134-434); RBC 3.67 M/mm3 (3.60-5.2); RDW 13.3 % (11.6-15.6); WHITE BLOOD COUNT 5.5 K/mm3 (4.0-10.0)
[2022-07-08 12:56] LABS: POTASSIUM 3.7 mmol/L (3.5-5.1)
[2022-07-08 12:58] LABS: CALCIUM 8.9 mg/dL (8.5-10.1)
[2022-07-08 12:59] LABS: BLOOD UREA NITROGEN 16.8 mg/dL (7-18)
[2022-07-08 13:02] LABS: CREATININE 0.9 mg/dL (0.55-1.3)
[2022-07-08 13:03] LABS: BILIRUBIN,TOTAL 0.4 mg/dL (0.2-1); TOT PROT 7.4 g/dl (6.4-8.2)
[2022-07-08 14:51] LABS: PH,URINE 6.5 (5.0-8.0); URINE APPEARANCE CLEAR; URINE BILIRUBIN NEGATIVE (NEGATIVE); URINE COLOR YELLOW; URINE GLUCOSE (UA) NEGATIVE (NEGATIVE); URINE KETONE NEGATIVE (NEGATIVE); URINE LEUK ESTERASE NEGATIVE (NEGATIVE); URINE NITRITE NEGATIVE (NEGATIVE); URINE PROTEIN NEGATIVE (NEGATIVE); URINE UROBILINOGEN 0.2 mg/dL (0.2-1.0)
[2022-07-08 15:40] VITALS: BP 118/61; PULSE 61; TEMP 98.6
== END 2022-07-08 17:10 | disposition home or self-care (01) ==
LOC: JER 11:16
PROC: 3E033GC Introduction of Other Therapeutic Substance into Peripheral Vein, Percutaneous Approach (ICD-10-PCS; principal; 2022-07-08)
DX: R10.11 Right upper quadrant pain (principal); R11.0 Nausea; R14.2 Eructation
CPT/HCPCS: 36415; 71045-TC-FY; 74177-TC; 80053; 81003; 83605; 83690; 83735; 84484; 85025; 87086; 93005; 93010; 99285-25; Q9967

== ENCOUNTER 2023-01-27 13:10 | Emergency (ER) | payer OTHER ==
[2023-01-27 13:26] VITALS: BP 129/79; PULSE 62; RESP 16; TEMP 98.4; BMI 19.3
[2023-01-27] MEDS ORDERED: LACTATED RINGERS SOLUTION 1000 ML INFUS.BAG IV ONE (13:41)
[2023-01-27 14:36] LABS: HEMATOCRIT 35.7 % (32.4-45.2); HEMOGLOBIN 12.2 G/dL (10.7-15.3); PLATELET COUNT 160.1 10^3/uL (134-434); RBC 3.68 10^6/uL (3.60-5.2); RDW 13.6 % (11.6-15.6); WHITE BLOOD COUNT 4.1 10^3/uL (4.0-10.8)
[2023-01-27 14:39] LABS: ALBUMIN 4.4 g/dl (3.4-5.0); BILIRUBIN,TOTAL 0.7 mg/dl (0.2-1); CALCIUM 9.4 mg/dl (8.5-10.1); CREATININE 0.9 mg/dl (0.6-1.3); MAGNESIUM 2.1 mg/dL (1.8-2.4); POTASSIUM 3.6 mmol/L (3.5-5.1); TOT PROT 7.2 g/dl (6.4-8.2)
[2023-01-27 14:40] LABS: PLATELET ESTIMATE ADEQUATE
[2023-01-27] MEDS ORDERED: BISACODYL 5 MG TABLET.DR (FP) PO ONE (15:16)
[2023-01-27] MEDS ORDERED: MINERAL OIL ENEMA 133 ML ENEMA RC ONE (16:11)
[2023-01-27 17:01] LABS: EPITHELIAL CELLS 0-5 /hpf
== END 2023-01-27 17:19 | disposition home or self-care (01) ==
LOC: FER 13:10
DX: R11.0 Nausea (principal); K59.00 Constipation, unspecified; R10.9 Unspecified abdominal pain; R14.0 Abdominal distension (gaseous)
CPT/HCPCS: 36415; 74177-TC; 80053; 81003; 81015; 83605; 83690; 83735; 85027; 87086; 93005; 99285-25; Q9967

== ENCOUNTER 2023-04-01 10:34 | Emergency (ER) | payer OTHER ==
[2023-04-01 11:18] VITALS: BP 113/77; PULSE 62; RESP 16; TEMP 98.1; BMI 19.1
== END 2023-04-01 14:20 | disposition home or self-care (01) ==
LOC: FER 10:34
DX: S09.90XA Unspecified injury of head, initial encounter (principal); R51.9 Headache, unspecified; W22.8XXA Striking against or struck by other objects, initial encounter; Y93.89 Activity, other specified
CPT/HCPCS: 70450-TC; 99284-25